=== PATIENT | male | born 1970 | race Caucasian/White ===

== ENCOUNTER 2021-06-20 11:11 | Emergency (ER) | payer MEDICAID, SELFPAY ==
[2021-06-20 11:14] VITALS: BP 120/78; PULSE 82; RESP 16; TEMP 36.5; O2SAT 98
--- NOTE | 2021-06-20 11:30 | DI.RAD_ITS ---
Exam(s) XR LUMBAR SPINE COMPLETE EXAM: XR LUMBAR SPINE COMPLETE CLINICAL HISTORY: Lower back pain. TECHNIQUE: 2D digital imaging was performed. COMPARISON: No exams were available for comparison FINDINGS: Uukr-yu-sexrcmdp dextroscoliosis versus muscle spasm. Mild disc space narrowing on the left at L 3 4 . Mild disc space narrowing at L5-S1. No acute fracture. Degenerative changes inferior SI joints. IMPRESSION: No acute abnormality. DATA REPOSITORY: RADIATION DOSE DELIVERED:
--- NOTE | 2021-06-20 11:31 | ED.GENADUL_ITS ---
Discharge Plan Disposition Patient Disposition: HOME Condition: Stable Discharge Details Clinical Impression: Lumbago with sciatica, right side Primary Care Provider: None,None ED Provider: Marley Morales Home Meds and New Rx's Prescriptions: No Action multivitamin Tablet 1 tab PO DAILY 0RF Discharge Instructions Instructions: Low Back Strain (ED), Lower Back Exercises (ED) Additional Instructions: At this time x-ray images appear within normal limits however if the radiology result comes back with something that need to be notified about I will give you a call. At this time it appears that you have strained muscles in your lower back. Please take the muscle relaxers and pain medication as directed, take them with food do not operate heavy machinery or drive while on the medications. Alternate ice and heat. He may also try lidocaine patches which you can get reop-[id number]. Return to the ER for any loss of bowel or bladder control, weakness in your low er extremities or any numbness or tingling in your groin area. Follow up with primary care provider in 3-5 days. Return to ED sooner if any worsening or concerns. Increase oral fluids. Please take Tylenol or Ibuprofen with food every 4-6 hours as needed for pain and swelling. Stand Alone Forms: Work Release Discharge Data Discharge Date/Time-TO BE ENTERED AT DEPARTURE: 06/20/21 13:39 Medical Decision Making 50-year-old male presents to the ER with chief complaint of right lower lumbar tenderness and burning status post a lifting injury on Sunday. Patient ambulatory to and from radiology department without difficulty. Is using a ski pole and a cane. Patient denies any loss of bowel or bladder control no saddle anesthesia or signs of cauda equina. EXAM:? XR LUMBAR SPINE COMPLETE CLINICAL HISTORY: ? Lower back pain.? TECHNIQUE:? 2D digital imaging was performed. COMPARISON:? No exams were available for comparison FINDINGS: Lxat-ax-[id number] dextroscoliosis versus muscle spasm.? Mild disc space narrowing on the left at L 3 4.? Mild disc space narrowing at L5-S1.? No acute fracture.? Degenerative changes inferior SI joints. IMPRESSION: No acute abnormality. Flexeril, topical lidocaine patch ordered. Discussed x-ray results with patient and red flags and strict return instructions. Discussed home care and follow-up with PCP. I did give him a work note for the next few days. Patient verbalized understanding remained hemodynamically stable. This text was generated using [employer] system, please disregard any oddities of phrase or misspellings. HPI General Mode of arrival: ambulatory . Date/Time Provider Initiated Documentation: 06/20/21 11:20 . Limitations to Documentation: no limitations . Information obtained by: patient, RN notes reviewed and old records reviewed . HPI Narrative: 50-year-old male presents to the ER with chief complaint of right lower lumbar tenderness and burning status post a lifting injury on Sunday. Patient reports that he was trying to lift up a normal male when he began with a burning back. He denies any saddle anesthesia or loss of bowel or bladder control. He does report pain that radiates into his right buttock but no radiation into his legs. He has no midline spine tenderness or crepitus with palpation. He does have paraspinous tenderness and muscle spasm. He has been taking Tylenol ibuprofen and alternating ice and heat with little to no relief. Related Data Home Medications Medication Instructions Recorded Confirmed multivitamin 1 tab PO DAILY 06/20/21 06/20/21 Allergies Allergy/AdvReac Type Severity Reaction Status Date / Time No Known Allergies Allergy Unverified 06/20/21 11:20 General Stated Complaint: Nk/Back Pain SELMA: 3 Review of Systems All systems reviewed & are unremarkable except as noted in HPI and below ENT Ears, Nose, Mouth, and Throat: Denies neck pain Musculoskeletal Musculoskeletal: Reports back pain, Reports muscle cramps, Denies neck pain, Denies numbness, Denies radiating pain into limb (pain radiating into Right buttock), Reports stiffness and Denies tingling Neurologic Neurologic: Denies numbness and Denies tingling [facility] All Active Problems (Updated 06/20/21 @ 13:34 by Marley Morales) Lumbago with sciatica, right side (Acute) Social History Smoking/Tobacco Use Status: Never Smoking risk assessment performed?: Yes Alcohol Intake: current Alcohol Intake frequency: a few times a week Drug use: Occasionally Substance use type: marijuana Do you feel safe at home: Yes Do you feel safe in your relationship?: Yes Exam Narrative Exam Narrative: Constitutional: Alert and oriented x3. Appears stated age. Normal body habitus. Head: Normocephalic, no trauma. Eyes: Pupils PERRL, Red reflex noted, EOM's intact. Eyelids symmetrical without lesions, discharge, or swelling. ENT: Bilateral TM's WNL, External ear normal to inspection, no mastoid TTP, swelling, or erythema, Nasal turbinates WNL, no nasal discharge. Normal dentition, Posterior pharynx WNL, no exudate. Chest: RRR, Normal S1, S2, distal pulses intact. Resp: Lungs clear to auscultation bilaterally, no wheezes, rales, or rhonchi. Abdomen: Soft, non-distended, Normoactive bowel sounds all 4 quads. Musculoskeletal: Stiff gait, 5/5 strength to all four extremities. Right paraspinous tenderness to lower lumbar spine. No midline tenderness with palpation no crepitus no step-off. Skin: No suspicious rashes or lesions. Capillary refill less than 2 sec. Neurologic: Cranial nerves II-XII intact. Alert and oriented x 3. Motor: No deficits noted. Sensory: Intact bilaterally all 4 extremities. Reflexes: DTR's intact bilaterally.. Hematologic/Lymphatic: No ecchymosis, no lymphadenopathy. Course Vital Signs Vital signs: Vital Signs Temperature 36.5 C 06/20/21 11:14 Pulse 82 06/20/21 11:14 Respiratory Rate 16 06/20/21 11:14 Blood Pressure 120/78 06/20/21 11:14 Pulse Oximetry 98 06/20/21 11:14 Temperature 36.5 C 06/20/21 11:14 Temperature Source Temporal Artery Scan 06/20/21 11:14 Pulse 82 06/20/21 11:14 Respiratory Rate 16 06/20/21 11:14 Respiratory Effort Non-Labored 06/20/21 11:18 Blood Pressure 120/78 06/20/21 11:14 Pulse Oximetry 98 06/20/21 11:14 Oxygen Delivery Method Room Air 06/20/21 11:14 Oxygen Flow Rate 0 06/20/21 11:14 Pain Level 7 06/20/21 11:21 Comment 06/20/21 11:14 PAWSS Have you Been Recently Intoxicated or Drunk Within the Last 30 days?: No Have you Ever Experienced Previous Episodes of Alcohol Withdrawal?: No Have you ever Experienced Withdrawal Seizures?: No Have you ever Experienced Delirium Tremens(DT)s?: No Have you ever undergone Alcohol Rehabilitation Treatment (i.e, inpt ot outpat ient treatment programs)?: No Have you ever Experienced Blackouts?: No Have you ever Combined Alcohol with other Downers within the last 90 days?: No Have you ever Combined Alcohol with any other Substance of Abuse during the last 90 days?: No Positive Blood Alcohol level on Presentation? [PCS.BAL]: No Evidence of Increased Autonomic Activity (i.e. HR>120, tremor, sweating, agitation, nausea)?: No Result: 0
[2021-06-20] MEDS: Cyclobenzaprine 10 MG TAB PO (11:55)
[2021-06-20] MEDS: Lidocaine 5% Patch 1 PATCH TP (11:56)
[2021-06-20] MEDS: Cyclobenzaprine 10 MG TAB, 3 TABS/BTL PO (13:29)
--- NOTE | 2021-06-20 13:35 | NUR.NOTE ---
Nursing Note: pt info given to care management to establish care and to be seen in two weeks for back pain. Hiral, ED
== END 2021-06-20 13:39 | disposition home or self-care (01) ==
PROVIDERS: Emergency Provider Registered Nurse Emergency
DX: M54.41 Lumbago with sciatica, right side (principal)
CPT/HCPCS: 99283; 72110

== ENCOUNTER 2021-07-20 10:17 | Emergency (ER) | payer OTHER, SELFPAY ==
[2021-07-20 10:26] VITALS: BP 135/109; PULSE 86; RESP 16; TEMP 36.8; O2SAT 98
--- NOTE | 2021-07-20 10:45 | DI.CT_ITS ---
Exam(s) CT HEAD CERVICAL SPINE WO EXAM: CT HEAD CERVICAL SPINE WO COMPARISON: No exams were available for comparison FINDINGS: CT examination of the cervical spine was performed without contrast administration. There are degenerative changes of the cervical spine particularly involving mid to lower cervical reg ion. There is no evidence of acute cervical spine fracture or dislocation. Intervertebral disc spaces are narrowed at C4-5, C5-6, and C6-7, presumably on a degenerative basis.. Tracheolaryngeal structures appear intact. No cervical mass or adenopathy. Noncontrast cranial CT was performed. There is moderate generalized cerebral atrophy. No evidence of acute intracranial hemorrhage, mass effect, or midline shift. No calvarial fracture. The orbital and temporal bone structures appear intact. Visualized mastoid air cells and paranasal sinuses appear clear except for some mucoperiosteal thicke laureano of the frontal, ethmoid, and maxillary sinuses.. IMPRESSION: No evidence of acute cervical spine injury. No evidence of acute intracranial injury. RADIATION DOSE DELIVERED: 1,341.88mGy.cm Total DLP 1,341.88mGy.cm Total DLP !Error CTDIvol DATA REPOSITORY: All CT scans at this facility are submitted to the National Radiology Data Registry (NRDR) Dose Index Registry (DIR) with the [employer] (ACR). RADIATION OPTIMIZATION: All CT scans at this facility use at least one of these dose optimization te chniques: automated exposure control; mA and/or kV adjustment per patient size (includes targeted exa ms where dose is matched to clinical indication); or iterative reconstruction.
--- NOTE | 2021-07-20 10:45 | DI.CT_ITS ---
Exam(s) CT CHEST/ABD/PEL W EXAM: CT CHEST/ABD/PEL W TECHNIQUE: CT examination of the chest, abdomen, and pelvis was performed with bolus infusion of 100 cc of Omnipaque 350. COMPARISON: CT CT CHEST/ABD/PEL W from 07/20/2021 FINDINGS: There is no evidence of a thoracic vascular injury. The lungs are clear. No pneumothorax or pleural effusion. No mediastinal hematoma. No adenopathy in the chest. Tracheobronchial tree appears intact. The liver, spleen, and pancreas appear normal. Gallbladder and bile ducts are normal. Adrenals and kidneys are unremarkable. No evidence of urinary tract injury or obstruction. No abdominal or pelvic vascular injury seen. No abdominal or pelvic adenopathy. No significant abdomi nal wall hernia or hematoma. No evidence of bowel injury. No fracture identified in the region surveyed. IMPRESSION: No evidence of acute injury of the chest, abdomen, or pelvis. RADIATION DOSE DELIVERED: 1,568.13mGy.cm Total DLP 1,568.13mGy.cm Total DLP !Error CTDIvol DATA REPOSITORY: All CT scans at this facility are submitted to the National Radiology Data Registry (NRDR) Dose Index Registry (DIR) with the [employer] (ACR). RADIATION OPTIMIZATION: All CT scans at this facility use at least one of these dose optimization te chniques: automated exposure control; mA and/or kV adjustment per patient size (includes targeted exa ms where dose is matched to clinical indication); or iterative reconstruction.
[2021-07-20] MEDS: MORPHine 10 MG/ML VIAL 6 MG IVP (10:57)
[2021-07-20 11:09] LABS: Abs Immature Grans 0.03 10^3/uL (0.0-0.06); Absolute Basophil Count 0.03 10^3/uL (0.0-0.2); Absolute Eosinophil Count 0.13 10^3/uL (0.0-0.7); Absolute Lymphocyte Count 1.49 10^3/uL (1.2-3.4); Absolute Monocyte Count 0.61 10^3/uL (0.1-0.8); Absolute Neutrophil Count 5.95 10^3/uL (1.2-6.7); Basophils % 0.4; Eosinophils % 1.6; HCT 43.3 % (40.0-50.0); HGB 14.6 g/dL (13.5-17.5); Immature Grans % 0.4; Lymphocytes % 18.1; MCH 29.3 pg (27.0-33.0); MCHC 33.7 % (32.0-36.0); MCV 86.8 fL (80-95); MPV 8.6 fL (8.0-11.0); Monocytes % 7.4; Neutrophils % 72.1; Nucleated RBC 0 %; Platelet Count 263 10^3/uL (130-400); RBC 4.99 10^6/uL (4.36-5.78); RDW 12.1 % (11.8-14.1); RDW-SD 38.4 fL; WBC 8.24 10^3/uL (4.4-10.8)
[2021-07-20 11:31] LABS: ALT 37 U/L (16-63); AST 29 U/L (15-37); Albumin 4.1 g/dL (3.4-5.0); Alkaline Phosphatase 62 U/L (46-116); Anion Gap 6.3 mmol/L (3-11); BUN 17 mg/dL (7-18); Bilirubin, Total 0.3 mg/dL (0.2-1.0); CO2 25.7 mmol/L (21.0-32.0); CREATININE 0.9 mg/dL (0.70-1.30); Chloride 104 mmol/L (98-107); Glucose 104 mg/dL (74-106); Potassium 4.5 mmol/L (3.5-5.1); Sodium 136 mmol/L (136-145); Total Protein 7.9 g/dL (6.4-8.2)
[2021-07-20] MEDS: Omnipaque 350 MG/ML 100 ML BTL IV (11:38)
--- NOTE | 2021-07-20 12:00 | ED.GENADUL_ITS ---
Discharge Plan Disposition Patient Disposition: HOME Condition: Stable Discharge Details Clinical Impression: Chest wall contusion Primary Care Provider: None,None ED Provider: Lizeth Hoff Home Meds and New Rx's Prescriptions: New orphenadrine citrate 100 mg tablet extended release 100 mg PO BID Qty: 10 0RF hydrocodone-acetaminophen 5-325 mg tablet 1 tab PO BID PRNQty: 6 0RF Continued multivitamin Tablet 1 tab PO DAILY 0RF Discharge Instructions Instructions: Contusion in Adults (ED) Additional Instructions: use your spirometer at least 10-12 times a day to prevent pneumonia lidoderm patch 12 hours on, 12 hours off return with spreading redness, fever, worsening pain take muscle relaxant as needed for discomfort motrin 600 mg every 8 hours with food take hydrocodone sparingly, this medication is addictive and can make you constipated Stand Alone Forms: Work Release Discharge Data Discharge Date/Time-TO BE ENTERED AT DEPARTURE: 07/20/21 13:[address] scans of chest, abdomen, pelvis, head, and cervical spine do not show evidence of acute abnormality per radiology interpretation my review Diagnostic labs are reassuring Patient feeling symptomatically improved at time of reassessment Work note supplied Return precautions discussed and patient expressed understanding Given spirometerwith recommendations to treat pain similarly to that a rib fracture to prevent pneumonia development Medical Records Medical records reviewed: Yes I reviewed the patient's medical records. Lab Data Lab results reviewed: Yes I reviewed the patient's lab results. HPI General Date/Time Provider Initiated Documentation: 07/20/21 10:31 . HPI Narrative: This 50-year-old gentleman presents with fall onto his right side. Patient fell approximately 5 feet onto a metal beam on his right side just prior to arrival at work. He states he slipped on some ice. He denies known head injury but states that his helmet fell off. He has pain to his chest wall and right upper quadrants. He denies history of coagulopathy and is otherwise healthy. Denies any fever or chills. The pain is exacerbated with movement and breathing. Denies any strength or sensation or vision change. Related Data Home Medications Medication Instructions Recorded Confirmed multivitamin 1 tab PO DAILY 06/20/21 07/20/21 hydrocodone 5 mg-acetaminophen 325 1 tab PO BID PRN #6 tab 07/20/21 mg tablet orphenadrine citrate 100 mg 100 mg PO BID #10 tab 07/20/21 tablet,extended release Previous Rx's Medication Instructions Recorded hydrocodone 5 mg-acetaminophen 325 1 tab PO BID PRN #6 tab 07/20/21 mg tablet orphenadrine citrate 100 mg 100 mg PO BID #10 tab 07/20/21 tablet,extended release Allergies Allergy/AdvReac Type Severity Reaction Status Date / Time No Known Allergies Allergy Unverified 07/20/21 10:33 General Stated Complaint: Chest/Rib SELMA: 3 Review of Systems All systems reviewed & are unremarkable except as noted in HPI and below PFSH All Active Problems (Updated 07/21/21 @ 00:05 by SUMANTH BONILLA) Chest wall contusion (Acute) Social History Smoking/Tobacco Use Status: Never Smoking risk assessment performed?: Yes Alcohol Intake: current Alcohol Intake frequency: a few times a week Alcohol type: beer and wine Drug use: Occasionally Substance use type: marijuana Do you feel safe at home: Yes Do you feel safe in your relationship?: Yes Exam Const General: cooperative and acute distress Orientation: alert and oriented x3 HENMT Head: normal to inspection Mouth: oral mucosae normal Other: No hemotympanum Eyes Pupils: PERRL Neck Other: No midline tenderness Chest Other: Abrasion and tenderness to right lateral chest, no flail chest, no crepitus Resp Effort & Inspection: normal respiratory effort Auscultation: clear to auscultation bilaterally Cardio Rate: regular rate Rhythm: regular rhythm GI Other: Right upper quadrant tenderness without visible sign of trauma, no CVA tenderness Back/Spine/Pelvis Other: No thoracic tenderness No lumbar tenderness Skin General skin exam: no rashes or lesions noted Neuro General: patient alert and patient oriented x3 Extrem General: normal to inspection Other: Distal pulses intact Course Vital Signs Vital signs: Vital Signs Temperature 36.8 C 07/20/21 10:26 Pulse 86 07/20/21 10:26 Respiratory Rate 16 07/20/21 10:26 Blood Pressure 135/109 H 07/20/21 10:26 Pulse Oximetry 98 07/20/21 10:26 Temperature 36.8 C 07/20/21 10:26 Temperature Source Temporal Artery Scan 07/20/21 10:26 Pulse 86 07/20/21 10:26 Respiratory Rate 16 07/20/21 10:26 Respiratory Effort Non-Labored 07/20/21 10:39 Respiratory Depth Normal 07/20/21 10:34 Respiratory Pattern Normal 07/20/21 10:34 Blood Pressure 135/109 H 07/20/21 10:26 Blood Pressure Position Sitting 07/20/21 10:26 Pulse Oximetry 98 07/20/21 10:26 Oxygen Delivery Method Room Air 07/20/21 10:26 Oxygen Flow Rate 0 07/20/21 10:26 Pain Level 10 07/20/21 10:34 Lab/Test Results Lab/Test Results: Laboratory Tests Range/Units 07/20/21 07/20/21 07/20/21 11:00 11:00 11:00 WBC (4.4-10.8) 10^3/uL 8.24 RBC (4.36-5.78) 10^6/uL 4.99 Hgb (13.5-17.5) g/dL 14.6 Hct (40.0-50.0) % 43.3 MCV (80-95) fL 86.8 MCH (27.0-33.0) pg 29.3 MCHC (32.0-36.0) % 33.7 RDW (11.8-14.1) % 12.1 Plt Count (130-400) 10^3/uL 263 MPV (8.0-11.0) fL 8.6 Immature Gran % 0.4 Neutrophils % 72.1 Lymphocytes % 18.1 Monocytes % 7.4 Eosinophils % 1.6 Basophils % 0.4 Nucleated RBC % % 0 Absolute Neutrophils (1.2-6.7) 10^3/uL 5.95 Absolute Lymphocytes (1.2-3.4) 10^3/uL 1.49 Absolute Monocytes (0.1-0.8) 10^3/uL 0.61 Absolute Eosinophils (0.0-0.7) 10^3/uL 0.13 Absolute Basophils (0.0-0.2) 10^3/uL 0.03 Sodium (136-145) mmol/L 136 Potassium (3.5-5.1) mmol/L 4.5 Chloride (98-107) mmol/L 104 Carbon Dioxide (21.0-32.0) mmol/L 25.7 Anion Gap (3-11) mmol/L 6.3 BUN (7-18) mg/dL 17 Creatinine (0.70-1.30) mg/dL 0.9 Estimated GFR/1.73 m2 (mL/min/1.73m2) >= 60.00 Glucose (74-106) mg/dL 104 Calcium (8.5-10.1) mg/dL 9.0 Total Bilirubin (0.2-1.0) mg/dL 0.3 AST (15-37) U/L 29 ALT (16-63) U/L 37 Alkaline Phosphatase (46-116) U/L 62 Total Protein (6.4-8.2) g/dL 7.9 Albumin (3.4-5.0) g/dL 4.1 Patient ABO/Rh A Positive Antibody Screen NEGATIVE PAWSS Have you Been Recently Intoxicated or Drunk Within the Last 30 days?: No Have you Ever Experienced Previous Episodes of Alcohol Withdrawal?: No Have you ever Experienced Withdrawal Seizures?: No Have you ever Experienced Delirium Tremens(DT)s?: No Have you ever undergone Alcohol Rehabilitation Treatment (i.e, inpt ot outpatient treatment programs)?: No Have you ever Experienced Blackouts?: No Have you ever Combined Alcohol with other Downers within the last 90 days?: No Have you ever Combined Alcohol with any other Substance of Abuse during the last 90 days?: No Positive Blood Alcohol level on Presentation? [PCS.BAL]: No Evidence of Increased Autonomic Activity (i.e. HR>120, tremor, sweating, agitation, nausea)?: No Result: 0
[2021-07-20] MEDS: Ketorolac 15 MG/ML VIAL IVP (12:02)
[2021-07-20] MEDS: Orphenadrine 60 MG/2 ML VIAL IVP (12:09)
[2021-07-20] MEDS: Lidocaine 5% Patch 2 PATCH TP (12:10)
[2021-07-20 13:40] VITALS: BP 124/70; PULSE 66; RESP 16; TEMP 36.7; O2SAT 97
== END 2021-07-20 13:40 | disposition home or self-care (01) ==
PROVIDERS: Emergency Provider Physician Assistant
DX: S20.211A Contusion of right front wall of thorax, initial encounter (principal); S09.8XXA Other specified injuries of head, initial encounter; W17.89XA Other fall from one level to another, initial encounter; Y99.0 Civilian activity done for income or pay
CPT/HCPCS: 74177; 80053; 86850; 86900; 86901; 99285; J2360; 70450; 71260; 72125; 85025; 99284; J1885; J2270; J3490

== ENCOUNTER 2021-08-18 19:02 | Outpatient (REF) | payer MEDICAID, SELFPAY ==
[2021-08-18 21:46] LABS: PSA, Screening 0.7 ng/mL (<=3.5)
== END 2021-08-18 19:03 | disposition home or self-care (01) ==
LOC: LBN 19:02
PROVIDERS: Visit Provider Nurse Practitioner Gerontology
DX: N13.8 Other obstructive and reflux uropathy (principal); N40.1 Benign prostatic hyperplasia with lower urinary tract symptoms; Z12.5 Encounter for screening for malignant neoplasm of prostate
CPT/HCPCS: 84153

== ENCOUNTER 2021-08-31 14:19 | Emergency (ER) | payer MEDICAID, SELFPAY ==
--- OUTSIDE RECORDS SUMMARY | 2021-08-31 14:24 | XMS_ITS ---
:1970 Author Care Team Providers Name Role Phone MILTON ROMANO MD Primary Care Provider [phone] ARSENIO CAMERON Lunchroom Aide [phone] Allergies Code Code System Name Reaction Severity Status Onset NKDA ? Medications Name Status Start Date Stop Date ? ? Fish Oil Active ? Not available ibuprofen 800 mg tablet Active ? Not avai lable Take 1 tablet 3 times a day by oral route as needed. multivitamin Active ? Not available turmeric Active ? Not available Problems No Known Problems Procedures Date Name Performed by ? 04/23/2006 Knee Surgery Information not avai lable Notes: R knee 2006, L knee 200904/23/1999 Carpal Tunnel Surgery Information not av ailable Notes: left 02/25/2020 XR, Elbow, 2 View [facility] Radiology (Internal) [address] [place] [id number] (Work Place) 03/17/2020 MRI, Elbow, W/o Contrast [facility] Radiology (Internal) [address] [place] [id number] (Work Place) 03/31/2020 XR, Eye, for Foreign Body [facility] Radiology (Internal) [address] [place], [place] [phone] (Work Place) Results Lab Results None recorded. Past Encounters 06/14/2020 Osteoarthritis of Elbow; Muscle Weakness ; Stiffness of Joint of Left Elbow; Tenosynovitis of Right Radial Styloid; Pain of Left Wrist Rolanda Cabrera, OT: [address] [place] [address], [address], [place] [address], Ph. 06/14/2020 Todd Stone MD: [address] [place] [address], [address], [place] [address], Ph. 06/11/2020 Osteoarthritis of Elbow; Muscle Weakness ; Stiffness of Joint of Left Elbow; Tenosynovitis of Right Radial Styloid; Pain of Left Wrist [facility]uly[facility] [phone], Ph. 06/08/2020 Osteoarthritis of Elbow; Muscle Weakness ; Stiffness of Joint of Left Elbow; Tenosynovitis of Right Radial Styloid; Pain of Left Wrist Rolanda Azuly[facility] [address], Ph. 06/02/2020 Osteoarthritis of Elbow; Muscle Weakness ; Stiffness of Joint of Left Elbow; Tenosynovitis of Right Radial Styloid; Pain of Left Wrist Rolanda Azuly, OT: [address] [place], [place] [address] [phone], Ph. 05/28/2020 Osteoarthritis of Elbow; Muscle Weakness ; Stiffness of Joint of Left Elbow; Tenosynovitis of Right Radial Styloid; Pain of Left Wrist Rolanda Azuly[facility] [address], Ph. 05/25/2020 Osteoarthritis of Elbow; Muscle Weakness ; Stiffness of Joint of Left Elbow; Tenosynovitis of Right Radial Styloid; Pain of Left Wrist Rolanda Azuly[facility] [address], Ph. 05/20/2020 Osteoarthritis of Elbow; Muscle Weakness ; Stiffness of Joint of Left Elbow; Tenosynovitis of Right Radial Styloid; Pain of Left Wrist Rolanda Champigny, OT: [facility] [phone], Ph. 05/14/2020 Osteoarthritis of Elbow; Muscle Weakness ; Stiffness of Joint of Left Elbow; Tenosynovitis of Right Radial Styloid; Pain of Left Wrist Mejia Larson, OT: [address] [address], Ph. 05/11/2020 Osteoarthritis of Elbow; Muscle Weakness ; Stiffness of Joint of Left Elbow; Tenosynovitis of Right Radial Styloid; Pain of Left Wrist Mejia Larson, OT: [address] [place] [phone], Ph. 05/10/2020 Todd Stone MD: [address] [place] [phone], Ph. 05/07/2020 Osteoarthritis of Elbow; Muscle Weakness ; Stiffness of Joint of Left Elbow; Tenosynovitis of Right Radial Styloid; Pain of Left Wrist Mejia Larson, OT: [address] [place] [phone], Ph. 05/04/2020 Osteoarthritis of Elbow; Muscle Weakness ; Stiffness of Joint of Left Elbow Mejia Larson, OT: [address] [place] [phone], Ph. 04/27/2020 Osteoarthritis of Elbow; Muscle Weakness ; Stiffness of Joint of Left Elbow Mejia Larson, OT: [address] [place] [phone], Ph. 04/21/2020 Osteoarthritis of Elbow; Muscle Weakness ; Stiffness of Joint of Left Elbow Mejia Larson, OT: [address] [place] [phone], Ph. 04/14/2020 Mary Ellen Baker PA-C: [address] [place] [phone], Ph. 03/17/2020 Fracture of Radial Head Mary Ellen Baker PA-C: [address] [place] [phone], Ph. Social History None recorded. Vaccine List Vaccine Type COVID-19, mRNA, LNP-S, PF, 30 mcg/0.3 mL dose ([employer]) 06/21/2021?0.3 mL Plan of Care Reminders Provider Appointments None ? ? recorded. Lab None ? ? recorded. Referral None ? ? recorded. Procedures None ? ? recorded. Surgeries None ? ? recorded. Imaging None ? ? recorded. Vitals 05/10/2020 03:00PM Follow Up 15 Height Weight 187.96 cm 04/14/2020 11:45AM Follow Up 30 Height Weight 187.96 cm 03/17/2020 11:30AM Follow Up 15 Height Weight 187.96 cm 02/25/2020 03:00PM Acute 30 Height Weight BMI Blood Pressure 187.96 cm 115.67 kg 32.7 kg/m2 128/78 mm[Hg]
[2021-08-31 14:25] VITALS: BP 138/68; PULSE 95; RESP 17; TEMP 36.4; O2SAT 96
--- NOTE | 2021-08-31 14:45 | DI.RAD_ITS ---
Exam(s) XR HAND LT COMPLETE EXAM: XR HAND LT COMPLETE CLINICAL HISTORY: pain left 4th and 5th mcp after trauma, swelling/r. TECHNIQUE: 2D digital imaging was performed. Three views. COMPARISON: No exams were available for comparison FINDINGS: BONES: No acute fracture is present. No bony destructive lesion is seen. JOINTS: No dislocation present. SOFT TISSUE: Posterior swelling over metacarpals. IMPRESSION: Unremarkable radiographs of the left hand. DATA REPOSITORY: RADIATION DOSE DELIVERED:
--- NOTE | 2021-08-31 15:39 | ED.GENADUL_ITS ---
Discharge Plan Disposition Patient Disposition: HOME Condition: Stable Discharge Details Clinical Impression: Hand swelling Primary Care Provider: None,None ED Provider: Lizeth Hoff Home Meds and New Rx's Prescriptions: New cephalexin 500 mg tablet 500 mg PO QID 7 Days Qty: 28 0RF prednisone 20 mg tablet 20 mg PO DAILY Qty: 6 0RF Continued omega 4-rpa-wcy-fish-turmeric 417 mg-120 mg- 276 mg-600 mg capsule PO DAILY tamsulosin [Flomax] 0.4 mg capsule 0.4 mg PO DAILY Qty: 90 1RF ibuprofen [IBU] 800 mg tablet 800 mg diphenhydramine HCl [Benadryl] 25 mg Capsule 25 mg PO PRN PRN multivitamin Tablet 1 tab PO DAILY Discharge Instructions Additional Instructions: Elevate your hand Keep splint in place for the next week Refrain from use of your hand Take antibiotic as prescribed, yogurt daily while on antibiotic Take prednisone You may take oxycodone, this medication is addictive, do not drive for 8 hours after taking it, use it for pain uncontrolled with ibuprofen only Return for spreading redness, fever, worsening pain Referrals: Callum Segura MD [ [facility] STAFF PHYSICIAN] - Discharge Data Discharge Date/Time-TO BE ENTERED AT DEPARTURE: 08/31/21 16:02 Medical Decision Making Patient placed in a splint for comfort, at this time I am unsure as to whether or not this may be cellulitis, strain, or local allergic reaction from standing Given sling to elevate, prednisone for possible local allergic reaction, Keflex for possible cellulitis, and will continue to take ibuprofen and Tylenol Will elevate Will place orthopedic referral Afebrile and nontoxic Return precaution discussed and patient expressed standing X-ray per radiology interpretation shows soft tissue swelling but no additional abnormality Medical Records Medical records reviewed: Yes I reviewed the patient's medical records. Lab Data Lab results reviewed: Yes I reviewed the patient's lab results. HPI General Date/Time Provider Initiated Documentation: 08/31/21 14:19 . HPI Narrative: This 30-year-old gentleman presents with report of left hand pain, swelling, redness. he had concern of insect bite and had some swelling to his hand after. He then grabbed a door that was swinging open from when and felt a pull in his hand and instant pain. Later that evening he had swelling and redness for which she presented to the emergency department. He had a film of his hand that did not show acute abnormality and a splint was attempted to be placed but unsuccessful. He presents today secondary to worsening pain and redness and swelling. He denies any fever or chills. He took a dose of Benadryl which did not help with symptoms reportedly. He has been taking ibuprofen for discomfort. He denies any additional complaints time. He denies any fever or chills. Related Data Home Medications Medication Instructions Recorded Confirmed multivitamin 1 tab PO DAILY 06/20/21 08/31/21 omega-3 417 mg-dha 120 mg-epa-276 cap PO DAILY 08/18/21 mg-fish oil 600 mg-tumeric capsule tamsulosin 0.4 mg capsule (Flomax) 0.4 mg PO DAILY #90 caps 08/18/21 08/31/21 cephalexin 500 mg tablet 500 mg PO QID 7 days #28 tabs 08/31/21 diphenhydramine HCl 25 mg capsule 25 mg PO PRN PRN 08/31/21 08/31/21 (Benadryl) ibuprofen 800 mg tablet (IBU) 800 mg 08/31/21 prednisone 20 mg tablet 20 mg PO DAILY #6 tabs 08/31/21 Previous Rx's Medication Instructions Recorded tamsulosin 0.4 mg capsule (Flomax) 0.4 mg PO DAILY #90 caps 08/18/21 cephalexin 500 mg tablet 500 mg PO QID 7 days #28 tabs 08/31/21 prednisone 20 mg tablet 20 mg PO DAILY #6 tabs 08/31/21 Allergies Allergy/AdvReac Type Severity Reaction Status Date / Time No Known Allergies Allergy Unverified 08/31/21 14:31 General Stated Complaint: Orthopedic SELMA: 4 Review of Systems All systems reviewed & are unremarkable except as noted in HPI and below PFSH All Active Problems (Updated 08/31/21 @ 15:50 by RENATA Wadsworth) Hand swelling (Acute) BPH loc w urin obs/LUTS (Acute) Medical History (Updated 08/31/21 @ 15:50 by RENATA Wadsworth) Kidney stone Social History Smoking/Tobacco Use Status: Never Smoking risk assessment performed?: Yes Alcohol Intake: current Alcohol Intake frequency: a few times a week Alcohol type: beer and wine Drug use: Occasionally Substance use type: marijuana Do you feel safe at home: Yes Do you feel safe in your relationship?: Yes Exam Const General: cooperative and comfortable Orientation: alert and oriented x3 Extrem Hand/finger images: 1. Mild erythema, swelling, tenderness, able to flex and extend with discomfort, no open wound, brisk capillary refill, distal pulses intact Course Vital Signs Vital signs: Vital Signs Temperature 36.4 C L 08/31/21 14:25 Pulse 95 H 08/31/21 14:25 Respiratory Rate 17 08/31/21 14:25 Blood Pressure 138/68 08/31/21 14:25 Pulse Oximetry 96 08/31/21 14:25 Temperature 36.4 C L 08/31/21 14:25 Pulse 95 H 08/31/21 14:25 Respiratory Rate 17 08/31/21 14:25 Blood Pressure 138/68 08/31/21 14:25 Blood Pressure Position Sitting 08/31/21 14:25 Pulse Oximetry 96 08/31/21 14:25 Oxygen Delivery Method Room Air 08/31/21 14:25 Oxygen Flow Rate 0 08/31/21 14:25 Pain Level 10 08/31/21 14:25
== END 2021-08-31 16:02 | disposition home or self-care (01) ==
PROVIDERS: Emergency Provider Physician Assistant
DX: R22.32 Localized swelling, mass and lump, left upper limb (principal)
CPT/HCPCS: 99283; 73130

== ENCOUNTER 2022-04-28 09:34 | Emergency (ER) | payer MEDICAID, SELFPAY ==
[2022-04-28 09:45] VITALS: BP 169/92; PULSE 81; RESP 16; TEMP 37; O2SAT 98
[2022-04-28 11:14] VITALS: BP 125/83; PULSE 65; RESP 18; TEMP 35.5; O2SAT 98
--- NOTE | 2022-04-28 11:30 | DI.RAD_ITS ---
Exam(s) XR HEEL LT OS CALCIS EXAM: XR HEEL LT OS CALCIS CLINICAL HISTORY: pain. TECHNIQUE: 2D digital imaging was performed. COMPARISON: No exams were available for comparison FINDINGS: BONES: No acute fracture is present. No bony destructive lesion is seen. Small enthesophyte at Achil les insertion. Small plantar calcaneal spur. JOINTS: No dislocation present. SOFT TISSUE: Normal. IMPRESSION: Small heel spurs. DATA REPOSITORY: RADIATION DOSE DELIVERED:
--- NOTE | 2022-04-28 11:30 | DI.RAD_ITS ---
Exam(s) XR HEEL RT OS CALCIS EXAM: XR HEEL RT OS CALCIS CLINICAL HISTORY: pain. TECHNIQUE: 2D digital imaging was performed. Two views. COMPARISON: CR XR HEEL LT OS CALCIS from 04/28/2022 FINDINGS: BONES: No acute fracture is present. No bony destructive lesion is seen. Small enthesophyte at Achil les insertion. No adjacent soft tissue swelling visible. JOINTS: No dislocation present. SOFT TISSUE: Normal. IMPRESSION: Small enthesophyte at Achilles insertion. DATA REPOSITORY: RADIATION DOSE DELIVERED:
[2022-04-28] MEDS: Ibuprofen 600 MG TAB PO (11:45)
--- NOTE | 2022-04-28 12:48 | W.ED.GENAD ---
Discharge Plan Disposition Patient Disposition: Home Condition: Stable Discharge Details Clinical Impression: Heel spur, Plantar fasciitis Primary Care Provider: Antonella,Local ED Provider: Ger Delaney Home Meds and New Rx's Prescriptions: Continued omega 5-lhc-pzy-fish-turmeric 417 mg-120 mg- 276 mg-600 mg capsule 1 cap PO DAILY ibuprofen [IBU] 800 mg tablet 800 mg PO PRN PRN multivitamin Tablet 1 tab PO DAILY Discharge Instructions Additional Instructions: Please use crutches and weight-bear as tolerated. Please take ibuprofen over the counter. Take 600mg by mouth every 6 hours as needed for pain. If pain persist despite rest and ibuprofen over the next week, please follow-up with orthopedics. Referrals: [facility] [Provider Group] Discharge Data Discharge Date/Time-TO BE ENTERED AT DEPARTURE: 04/28/22 16:06 Medical Decision Making 51-year-old male here with bilateral heel pain left greater than right, tender posterior heel, with no inflammatory changes. No tenderness midfoot/ball of foot and heel. X-ray of the right heel interpreted by radiology: Small enthesophyte at Achilles insertion. X-ray of the left heel interpreted by radiology: Small heel spurs. Suspect Planter fasciitis bilaterally. Plan to treat with crutches and anti-inflammatory. Patient was given initial dose of ibuprofen here. Crutches were provided. Patient was instructed to rest over the next week and if pain persist follow-up with orthopedics. HPI General Mode of arrival: ambulatory. Date/Time Provider Initiated Documentation: 04/28/22 10:47. Limitations to Documentation: no limitations. Information obtained by: patient. HPI Narrative: 51-year-old male here with chief complaint of heel pain. Patient notes bilateral heel pain, left greater than right over the past few days. 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 Pain is worse with ambulation. No known direct trauma. Related Data Home Medications Medication Instructions Recorded Confirmed multivitamin 1 tab PO DAILY 06/20/21 04/28/22 omega-3 417 mg-dha 120 mg-epa-276 1 cap PO DAILY 08/18/21 04/28/22 mg-fish oil 600 mg-tumeric capsule ibuprofen 800 mg tablet (IBU) 800 mg PO PRN PRN 08/31/21 04/28/22 Allergies Allergy/AdvReac Type Severity Reaction Status Date / Time No Known Allergies Allergy Unverified 04/28/22 09:48 General Stated Complaint: Orthopedic SELMA: 4 Review of Systems Constitutional Constitutional: Denies fever(s) and Denies weakness Musculoskeletal Musculoskeletal: Reports as per HPI and Denies tingling Neurologic Neurologic: Denies tingling and Denies weakness PFSH All Active Problems (Updated 04/28/22 @ 12:55 by Ger Delaney MD) Heel spur (Acute) Plantar fasciitis (Acute) BPH loc w urin obs/LUTS (Acute) Medical History (Updated 04/28/22 @ 12:55 by Ger Delaney MD) Kidney stone Social History Smoking/Tobacco Use Status: Never Smoking risk assessment performed?: Yes Alcohol Intake: current Alcohol Intake frequency: a few times a week Alcohol type: beer and wine Drug use: Occasionally Substance use type: marijuana Do you feel safe at home: Yes Do you feel safe in your relationship?: Yes Exam Const General: cooperative HENMT Mouth: moist mucous membranes Eyes Conjunctivae: normal conjunctivae Sclera: normal sclerae Cardio Rate: regular rate Rhythm: regular rhythm Pulses: dorsalis pedis present Skin Rashes: no rashes (feet) Neuro Other: distal sensation intact, distal motor intact Extrem Right lower extremity: foot Details: tenderness Location: of the plantar foot Location: proximally, vascular exam Details: dorsalis pedis pulse present and motor-sensory exam Details: light-touch normal; no unusual warmth and no crepitus Left lower extremity: foot Details: tenderness Location: of the plantar foot Location: proximally, no edema, vascular exam Details: dorsalis pedis pulse present and motor-sensory exam Details: light-touch normal; no crepitus Psych Appearance: grossly normal Mental Status: mental status grossly normal Course Vital Signs Vital signs: Vital Signs Temperature 37.0 C 04/28/22 09:45 Pulse 81 04/28/22 09:45 Respiratory Rate 16 04/28/22 09:45 Blood Pressure 169/92 H 04/28/22 09:45 Pulse Oximetry 98 04/28/22 09:45 Temperature 35.5 C L 04/28/22 11:14 Temperature Source Tympanic 04/28/22 11:14 Pulse 65 04/28/22 11:14 Respiratory Rate 18 04/28/22 11:14 Respiratory Effort 04/28/22 09:49 Blood Pressure 125/83 04/28/22 11:14 Blood Pressure Position Supine 04/28/22 09:45 Pulse Oximetry 98 04/28/22 11:14 Oxygen Delivery Method Room Air 04/28/22 11:14 Oxygen Flow Rate 0 04/28/22 11:14 Pain Level 10 04/28/22 09:45 PAWSS Have you Been Recently Intoxicated or Drunk Within the Last 30 days?: Yes Have you Ever Experienced Previous Episodes of Alcohol Withdrawal?: No Have you ever Experienced Withdrawal Seizures?: No Have you ever Experienced Delirium Tremens(DT)s?: No Have you ever undergone Alcohol Rehabilitation Treatment (i.e, inpt ot outpatient treatment programs)?: No Have you ever Experienced Blackouts?: No Have you ever Combined Alcohol with other Downers within the last 90 days?: No Have you ever Combined Alcohol with any other Substance of Abuse during the last 90 days?: No Positive Blood Alcohol level on Presentation? [PCS.BAL]: No Evidence of Increased Autonomic Activity (i.e. HR>120, tremor, sweating, agitation, nausea)?: No Result: 1
--- NOTE | 2022-04-29 18:02 | NUR.NOTE ---
Nursing Note: Accessed chart for [facility] billing purposes.
== END 2022-04-28 16:06 | disposition home or self-care (01) ==
PROVIDERS: Emergency Provider Student in an Organized Health Care Education/Training Program
DX: M77.32 Calcaneal spur, left foot (principal); M77.31 Calcaneal spur, right foot; M72.2 Plantar fascial fibromatosis
CPT/HCPCS: 99283; 73650; 99282

== ENCOUNTER 2024-07-20 12:08 | Emergency (ER) | payer MEDICAID, SELFPAY ==
[2024-07-20 12:11] VITALS: BP 143/89; PULSE 63; RESP 20; TEMP 36.9; O2SAT 97
--- NOTE | 2024-07-20 12:26 | ED.GENADUL_ITS ---
Discharge Plan Disposition Patient Disposition: Home Condition: Stable Discharge Details Clinical Impression: Contusion of rib on left side Primary Care Provider: Unknown,Unknown ED Provider: Lucius Orosco Home Meds and New Rx's Prescriptions: Continued omega 5-xjy-yzr-fish-turmeric 417 mg-120 mg- 276 mg-600 mg capsule 1 cap PO DAILY ibuprofen [IBU] 800 mg tablet 800 mg PO PRN PRN multivitamin Tablet 1 tab PO DAILY Discharge Instructions Instructions: Rib Fracture or Bruised Rib ED Additional Instructions: You were seen in the emergency department for your fall yesterday injuring your left lower ribs, there is no fracture seen on your CT scan, no popped lung or severe pulmonary issue, please use therapeutic dosing of Tylenol (acetamenophen) & Advil (ibuprofen) in an alternating fashion as follows: Take 1000mg of Tylenol every 6 hours without missing doses- that is 4 times per day. [place] in between the Tylenol dosings, take 400-600mg of Advil also on a 6 hour schedule, that is also 4 times per day. The daily maximum dosing of Tylenol is 4000mg, and the daily maximum dosing of Advil is 2400mg. This is safe to do for weeks. Please note that some common cold medications & prescription pain medications may contain acetamenophen and you need to read OTC drug labels and factor that in to maximum daily dosings. Please return for any profound increase in shortness of breath especially fever, developing cough, other emergent concerns. Incidentally her ascending thoracic aorta has above normal diameter, it has not changed when compared to your CT scan 3 years ago you should monitor this with your primary care provider as it is at increased risk for aneurysm Discharge Data Discharge Date/Time-TO BE ENTERED AT DEPARTURE: 07/20/24 14:14 HPI General Date/Time Provider Initiated Documentation: 07/20/24 12:15 . HPI Narrative: 53 year-old male presents to ED today by POV/ambulating with a chief complaint of L axillary rib pain after a fall onto a wood pile with onset yesterday morning. Quality described as painful to deep inspiration, occasional cough, no radiation to fever, bruising, swelling, chest pain, abdominal pain, nausea/vomiting. Severity is described as severe. Palliating factors include nothing specific attempted. Provoking factors include nothing specific. Patient not anticoagulated. Related Data Home Medications ?Medication ?Instructions ?Recorded ?Confirmed multivitamin 1 tab PO DAILY 06/20/21 07/20/24 omega-3 417 mg-dha 120 mg-epa-276 1 cap PO DAILY 08/18/21 07/20/24 mg-fish oil 600 mg-turmeric capsule ibuprofen 800 mg tablet (IBU) 800 mg PO PRN PRN 08/31/21 07/20/24 Allergies Allergy/AdvReac Type Severity Reaction Status Date / Time No Known Allergies Allergy Unverified 07/20/24 12:15 General Stated Complaint: Chest/Rib SELMA: 4 Review of Systems All systems reviewed & are unremarkable except as noted in HPI and below Exam Narrative Exam Narrative: GENERAL APPEARANCE: Well-nourished, non-toxic, awake and alert, atraumatic, no acute distress. SKIN: Warm, pink, dry, intact, without rashes/lesions/ulcerations. HEAD: Normocephalic, atraumatic, normal hair distribution for gender/age. EYES: Normal conjunctiva, no exudates on lids/lashes. ENT: Nares patent, no circumoral cyanosis, no facial swelling NECK: Supple, trachea midline, painless cervical ROM. LUNGS/CHEST: Lungs CTA bilaterally-no focally diminished or absent lung sounds, non-labored respirations, normal A/P diameter, symmetrical expansion, no chest wall deformity, tenderness to the left midclavicular lower ribs without crepitus, no flail segment or paradoxical motion, no swelling or contusion or ec chymosis to the area of tenderness HEART (CV/PV): Regular rate and rhythm without murmur, no peripheral edema, no JVD. ABDOMEN: Soft, non-distended, no guarding, no ecchymosis, no rigidity, no tenderness. MSK: Normal ROM, no swelling/deformity to bilateral UEs or LEs, moving all extremities without weakness, no cyanosis, spine midline without tenderness, normal curvature. NEURO: Mental Status AAOx4 - alert to person, place, time, events No facial droop, no forehead involvement. Motor: No focal weakness - strength 5/5 in bilateral UEs and LEs, proximal and distal, symmetric. Sensory: sensation intact to light touch globally. Gait normal: patient ambulated without ataxia into ED room. PSYCH: euthymic, cooperative, pleasant, appropriate speech Course Vital Signs Vital signs: Vital Signs Temperature 36.9 C 07/20/24 12:11 Pulse 63 07/20/24 12:11 Respiratory Rate 20 07/20/24 12:11 Blood Pressure 143/89 H 07/20/24 12:11 Pulse Oximetry 97 07/20/24 12:11 Temperature 36.9 C 07/20/24 12:11 Pulse 63 07/20/24 12:11 Respiratory Rate 20 07/20/24 12:11 Blood Pressure 143/89 H 07/20/24 12:11 Blood Pressure Position Sitting 07/20/24 12:11 Pulse Oximetry 97 07/20/24 12:11 Oxygen Delivery Method Room Air 07/20/24 12:11 Oxygen Flow Rate 0 07/20/24 12:11 Medical Decision Making This dictation utilizes [id number] dictation software and may contain unedited grammatical errors. 53 year-old male presents to ED today by POV/ambulating with a chief complaint of L axillary rib pain after a fall onto a wood pile with onset yesterday morning. Quality described as painful to deep inspiration, occasional cough, no radiation to fever, bruising, swelling, chest pain, abdominal pain, nausea/vomiting. Severity is described as severe. Palliating factors include nothing specific attempted. Provoking factors include nothing specific. Patients' medical history: Negative, otherwise healthy but does not go to the doctor often. Family and social history: Noncontributory. Pertinent exam findings / vital signs include left midclavicular lower rib tend erness, no focal or diminished absent lung sounds, nontoxic and afebrile without respiratory distress, no flail segment or paradoxical motion. Differential / pathologies of concern include rib fracture, contusion, pneumothorax. Diagnostic studies of: -CT chest without contrast-shows no acute fracture or pulmonary contusion, no pneumothorax. Interventions of: -Recommend Tylenol and ibuprofen, patient has taken some prior to showing up today. ED Course/Assessment/Plan: 53-year-old male presents after a fall onto woodpile yesterday morning injuring his left lower ribs, has tenderness and pain with deep inspiration, likely has significant contusion of the rib with no fracture seen on CT of the chest, counseled on likely improvement over time and taking therapeutic dosing of Tylenol and ibuprofen, I discussed the patient's incidental finding of increased diameter of his ascending aorta and placed him on a list to establish primary care for surveillance, it is not grown in 3 years, strict return criteria for developing cough and fever especially with worsening respiratory distress. Findings not consistent with pneumothorax, rib fracture, trauma criteria. Disposition of contusion of rib on left side. Patient verbalized understanding of the plan and return to ED criteria and engaged in shared decision making. Medical Records Medical records reviewed: Yes I reviewed the patient's medical records. Imaging Data Radiologic Study: Attestation: I personally reviewed and interpreted this imaging study as follows: Imaging: CT Scan Radiologist's impression: EXAM: CT CHEST WO CLINICAL HISTORY: L lower rib injury. TECHNIQUE: Multi planar reconstructions were performed. CONTRAST MATERIAL: None COMPARISON: CT CT CHEST/ABD/PEL W from 07/20/2021 FINDINGS: CHEST: LUNGS: No infiltrates nor lung contusion. No pleural effusions. No pneumothorax. This small nodular densities in the right upper lobe are unchanged from 2022. No new significant focal lung findings and there are no pleural effusions. No findings in the trachea and mainstem bronchi. MEDIASTINUM: No sternal fractures nor mediastinal hematomas. No hilar nor mediastinal adenopathy. Visualized thyroid unremarkable.No obvious axillary adenopathy CARDIAC: Heart size is normal. There is no pericardial effusion.The diameter of the ascending thoracic aorta is enlarged, measuring 4.1 cm. Unchanged from previous. The diameter of the aortic arch and descending thoracic aorta are upper normal. VISUALIZED UPPER ABDOMEN:No adrenal findings. Spleen unremarkable. No ascites. OSSEOUS: No rib fractures identified. Irregularity of the left transverse process of L1 noted which has more the appearance of developmental variant than an acute fracture. Mild indentation of the superior endplate of T7 is again noted, unchanged. No new compression fractures. No facet malalignment. IMPRESSION: 1. No rib fractures evident. 2. No lung contusion, infiltrate, pleural effusion, nor pneumothorax. 3. Ascending thoracic aorta diameter is enlarged measuring 4.1 cm but unchanged from prior CT scan of 3 years ago (June 2021). Report called by myself to ER provider 07/20/2024 at 1:40 p.m. Quality:SDOH Health Related Social Needs: No Data to Display PFSH All Active Problems (Updated 07/20/24 @ 13:46 by RENATA Lee) Contusion of rib on left side (Acute) BPH loc w urin obs/LUTS (Acute) Medical History (Updated 07/20/24 @ 13:46 by RENATA Lee) Kidney stone Social History Smoking/Tobacco Use Status: Never Smoking risk assessment performed?: Yes Alcohol Intake: current Alcohol Intake frequency: a few times a week Alcohol type: beer and wine Drug use: Occasionally Substance use type: marijuana Do you feel safe at home: Yes Do you feel safe in your relationship?: Yes PAWSS Have you Been Recently Intoxicated or Drunk Within the Last 30 days?: No Have you Ever Experienced Previous Episodes of Alcohol Withdrawal?: No Have you ever Experienced Withdrawal Seizures?: No Have you ever Experienced Delirium Tremens(DT)s?: No Have you ever undergone Alcohol Rehabilitation Treatment (i.e, inpt ot outpatient treatment programs)?: No Have you ever Experienced Blackouts?: No Have you ever Combined Alcohol with other Downers within the last 90 days?: No Have you ever Combined Alcohol with any other Substance of Abuse during the last 90 days?: No Positive Blood Alcohol level on Presentation? [PCS.BAL]: No Evidence of Increased Autonomic Activity (i.e. HR>120, tremor, sweating, agitation, nausea)?: No Result: 0
--- NOTE | 2024-07-20 12:30 | DI.CT_ITS ---
Exam(s) CT CHEST WO EXAM: CT CHEST WO CLINICAL HISTORY: L lower rib injury. TECHNIQUE: Multi planar reconstructions were performed. CONTRAST MATERIAL: None COMPARISON: CT CT CHEST/ABD/PEL W from 07/20/2021 FINDINGS: CHEST: LUNGS: No infiltrates nor lung contusion. No pleural effusions. No pneumothorax. This small nodula r densities in the right upper lobe are unchanged from 202. No new significant focal lung findings and there are no pleural effusions. No findings in the trachea and mainstem bronchi. MEDIASTINUM: No sternal fractures nor mediastinal hematomas. No hilar nor mediastinal adenopathy. V isualized thyroid unremarkable.No obvious axillary adenopathy CARDIAC: Heart size is normal. There is no pericardial effusion.The diameter of the ascending thorac ic aorta is enlarged, measuring 4.1 cm. Unchanged from previous. The diameter of the aortic arch an d descending thoracic aorta are upper normal. VISUALIZED UPPER ABDOMEN:No adrenal findings. Spleen unremarkable. No ascites. OSSEOUS: No rib fractures identified. Irregularity of the left transverse process of L1 noted which has more the appearance of developmental variant than an acute fracture. Mild indentation of the sup erior endplate of T7 is again noted, unchanged. No new compression fractures. No facet malalignment . IMPRESSION: 1. No rib fractures evident. 2. No lung contusion, infiltrate, pleural effusion, nor pneumothorax. 3. Ascending thoracic aorta diameter is enlarged measuring 4.1 cm but unchanged from prior CT scan of 3 years ago (June 2021). Report called by myself to ER provider 07/20/2024 at 1:40 p.m. RADIATION DOSE DELIVERED: 364.65mGy.cm Total DLP DATA REPOSITORY: All CT scans at this facility are submitted to the National Radiology Data Registry (NRDR) Dose Index Registry (DIR) with the [employer] ([employer]). RADIATION OPTIMIZATION: All CT scans at this facility use at least one of these dose optimization te chniques: automated exposure control; mA and/or kV adjustment per patient size (includes targeted exa ms where dose is matched to clinical indication); or iterative reconstruction.
[2024-07-20 14:12] VITALS: BP 113/71; PULSE 69; RESP 16; O2SAT 97
== END 2024-07-20 14:14 | disposition home or self-care (01) ==
PROVIDERS: Emergency Provider Physician Assistant
DX: S20.212A Contusion of left front wall of thorax, initial encounter (principal); W01.198A Fall on same level from slipping, tripping and stumbling with subsequent striking against other object, initial encounter; Y93.89 Activity, other specified; Y92.017 Garden or yard in single-family (private) house as the place of occurrence of the external cause
CPT/HCPCS: 71250; 99284

== ENCOUNTER 2024-09-04 01:41 | Outpatient (CLI) | payer MEDICAID, SELFPAY ==
[2024-09-04 08:51] LABS: Calculated LDL 123 mg/dL (<100); Cholesterol 229 mg/dL (<200); HDL Cholesterol 43 mg/dL (>or=40); Triglyceride 318 mg/dL (<150)
[2024-09-04 10:50] LABS: Glucose 116 mg/dL (74-106)
== END 2024-09-04 01:42 | disposition home or self-care (01) ==
LOC: LBO 01:41
PROVIDERS: Visit Provider Nurse Practitioner Family
DX: Z00.00 Encounter for general adult medical examination without abnormal findings (principal)
CPT/HCPCS: 36415; 80061; 82947

== ENCOUNTER 2025-02-20 03:44 | Outpatient (CLI) | payer MEDICAID, SELFPAY ==
[2025-02-20 07:44] LABS: Hemoglobin A1C 6.0 % (<5.7)
[2025-02-20 21:09] LABS: PSA, Screening 1.1 ng/mL (<=3.5)
[2025-02-28 01:24] LABS: Testosterone, Free 63.8 pg/mL (35.0-155.0)
== END 2025-02-20 03:45 | disposition home or self-care (01) ==
LOC: LBO 03:44
PROVIDERS: PCP Nurse Practitioner Family; Visit Provider Nurse Practitioner Family
DX: N52.9 Male erectile dysfunction, unspecified (principal)
CPT/HCPCS: 36415; 84153; 84402; 84403; 83036